=== PATIENT | female | born 1955 | race Hispanic/Latino ===

== ENCOUNTER 2020-08-10 20:06 | Emergency (ER) | payer OTHER, MEDICARE ==
--- NOTE | 2020-08-10 23:18 | XRay Report ---
EXAMINATION: Lumbar spine radiograph series, 3 views, 08/10/2020 CLINICAL INFORMATION: Low back pain. No history of trauma is given COMPARISON: None. FINDINGS: There is gross normal alignment of the lumbar vertebral bodies. There has been previous kyphoplasty o r vertebroplasty at the T12, L2 and L4 levels. Vertebral body height appears grossly well maintained. There are moderate multilevel degenerative changes and multilevel disc space narrowing. IMPRESSION: 1. Postsurgical and moderate degenerative changes throughout the lumbar spine. Signer Name: Karol Reed MD Signed: 08/10/2020 11:13 PM Workstation Name: [id number]
--- NOTE | 2020-08-10 23:20 | XRay Report ---
EXAMINATION: Cervical spine radiograph series, 3 views, 08/10/2020 CLINICAL INFORMATION: Neck pain. No history of trauma is given COMPARISON: None. FINDINGS: There is mildly exaggerated cervical lordosis area moderate to advanced multilevel degenera tive changes are noted. There has been previous posterior surgical fusion of the cervicothoracic spin e which limits evaluation. The odontoid view appears grossly normal. IMPRESSION: 1. Moderately advanced multilevel degenerative and postsurgical changes of the cervical spine. Signer Name: Karol Reed MD Signed: 08/10/2020 11:16 PM Workstation Name: [id number]
--- NOTE | 2020-08-10 23:21 | XRay Report ---
EXAMINATION: Left wrist radiograph, 3 views, 08/10/2020 CLINICAL INFORMATION: Left wrist pain COMPARISON: None. FINDINGS: There is no evidence of acute fracture or dislocation of the left wrist. There has been pre vious surgical stabilization of the ulna. Bony structures appear subjectively demineralized. IMPRESSION: 1. No evidence of acute bony abnormality of the left wrist. Signer Name: Karol Reed MD Signed: 08/10/2020 11:17 PM Workstation Name: [id number]
[2020-08-11] MEDS ORDERED: ACETAMINOPHEN 325 MG TAB PO ONE (02:50)
[2020-08-11] MEDS ORDERED: FAMOTIDINE 20 MG TAB PO ONE (02:50)
[2020-08-11] MEDS ORDERED: ONDANSETRON 4 MG ODT TAB PO ONE (02:50)
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
[2020-08-11 05:45] VITALS: BP 130/76
== END 2020-08-11 04:00 | disposition home or self-care (01) ==
LOC: ED 20:06
DX: S63.502A Unspecified sprain of left wrist, initial encounter (principal); M62.830 Muscle spasm of back; K21.9 Gastro-esophageal reflux disease without esophagitis; F41.9 Anxiety disorder, unspecified; Z86.718 Personal history of other venous thrombosis and embolism; Z86.711 Personal history of pulmonary embolism; Z98.890 Other specified postprocedural states; Z79.899 Other long term (current) drug therapy; Z88.2 Allergy status to sulfonamides; Z91.040 Latex allergy status; Z88.8 Allergy status to other drugs, medicaments and biological substances; V49.49XA Driver injured in collision with other motor vehicles in traffic accident, initial encounter; Y93.89 Activity, other specified; Y92.410 Unspecified street and highway as the place of occurrence of the external cause; Y99.8 Other external cause status
CPT/HCPCS: 72040; 72100; Q0162